=== PATIENT | male | born 1940 | race Caucasian/White ===

== ENCOUNTER 2016-07-21 12:52 | Emergency (ER) | payer MEDICARE, OTHER ==
--- NOTE | 2016-07-31 01:09 | ER ---
ADMIT: 07/21/2016 RM/LOC: ER [facility] MR#: [id number] [address] [id number] [facility] [address] [place] [address] Emergency Room Report SEX: M AGE: 76 : 1940 DATE: 07/21/2016 ADDENDUM: CHIEF COMPLAINT: Fall. HISTORY OF PRESENT ILLNESS: This is a 76-year-old, who has right posterior rib pain. He was on his countertop and want to go step backwards because he thought a chair was there, it was not. Luckily, his was there to help with the fall a little bit, but he still fell backwards onto the floor onto his back. An x-ray was done of his ribs. He does have a fracture of ribs 6, 7, and 8 but no pneumothorax. I am sending him home with [place] for pain, a rib belt to wear for 12 hours at the time, and also incentive spirometry to help with air movement. Told him to follow up with his primary care physician if he develops any kind or shortness of breath, fever, or cough. IMPRESSION: Rib fractures of 6, 7, and 8. MISAEL Dowd / Alejandro Pulliam MD / marcus JOB #: [id number] CC: Alejandro Pulliam MD, Attending Physician Nathaniel Blanchard DO, Family Physician
== END 2016-07-21 15:30 | disposition home or self-care (01) ==
LOC: ER 12:52
DX: S22.41XA Multiple fractures of ribs, right side, initial encounter for closed fracture (principal); I10 Essential (primary) hypertension; W01.0XXA Fall on same level from slipping, tripping and stumbling without subsequent striking against object, initial encounter; Y92.009 Unspecified place in unspecified non-institutional (private) residence as the place of occurrence of the external cause